=== PATIENT | male | born 1980 | race Two or more races ===

== ENCOUNTER 2020-08-17 21:45 | Emergency (ER) | payer SELFPAY ==
[2020-08-17 22:05] LABS: ABSOLUTE BASOPHILS # (AUTO) 0.1 10^3/uL (0.0-0.2); ABSOLUTE LYMPHOCYTES (AUTO) 1.3 10^3/uL (0.5-4.7); ABSOLUTE MONOCYTES (AUTO) 1.2 10^3/uL (0.1-1.4); ABSOLUTE NEUT (AUTO) 17.1 10^3/uL (1.7-8.2); BASOPHILS % (AUTO) 0.4 % (0-2); HEMATOCRIT 45.3 % (37.9-51.0); HEMOGLOBIN 15.7 g/dL (13.5-17.0); LYMPHOCYTES % (AUTO) 6.5 % (13-45); MEAN CORPUSCULAR HEMOGLOBIN 31.9 pg (27.0-33.4); MEAN CORPUSCULAR HGB CONC 34.7 g/dL (32.0-36.0); MEAN CORPUSCULAR VOLUME 92 fl (80-97); MONOCYTES % (AUTO) 6.3 % (3-13); PLATELET COUNT 261 10^3/uL (150-450); RED BLOOD COUNT 4.93 10^6/uL (4.35-5.55); RED CELL DISTRIBUTION WIDTH 14.2 % (11.5-14.0); SEGMENTED NEUTROPHILS % (AUTO) 86.8 % (42-78); TOTAL CELLS COUNTED % (AUTO) 100 %; WHITE BLOOD COUNT 19.7 10^3/uL (4.0-10.5)
--- NOTE | 2020-08-17 22:11 | ER Document Report ---
ED General - General TRAVEL OUTSIDE OF THE [place] IN LAST 30 DAYS: No - HPI Associated symptoms: Other - Unknown Exacerbated by: Other - None Relieved by: Other - Unknown <BOAZ PERERA IV - Last Filed: 08/18/20 04:51> <ISAEL MONROE - Last Filed: 08/18/20 18:56> - General Chief Complaint: Psych Problem Stated Complaint: PSYCH Time Seen by Provider: 08/17/20 22:07 - HPI Context: This is a 40-year-old male with a history of bipolar disorder and schizophrenia, reportedly noncompliant with his medications, that was detained by local police after driving a stolen vehicle [place] a [place] pond. While the law enforcement officers were trying to detain the patient he became very combative and was acting in a bizarre manner. EMS was called to the scene. EMS crew had great difficulty doing initial assessment with patient safely until they finally gave the patient some ketamine and Ativan which allowed them to do a evaluation on the patient and transport him to the emergency department for further evaluation. Further history of the present illness is somewhat limited given the patient has been sedated. Presumably the patient is experiencing some type of acute psychosis and certainly seems to pose a danger to himself and others. This MD is going to take out IVC papers and do a medical screening exam on the patient. Patient is unable to articulate at this time if there are any exacerbating or alleviating factors related to his symptoms. (BOAZ PERERA IV) - Related Data Allergies/Adverse Reactions: No Known Allergies Allergy (Verified 04/14/15 15:25) Past Medical History - General Information source: Law Enforcement, Emergency Med Personnel - Social History Smoking Status: Unknown if Ever Smoked Frequency of alcohol use: Unknown Drug Abuse: None - Unknown Lives with: Other - Unknown Family History: Other - Unable to obtain family history - Past Medical History Cardiac Medical History: Reports: Hx Hypertension Psychiatric Medical History: Reports: Hx Bipolar Disorder, Hx Schizophrenia Past Surgical History: Reports: Hx Orthopedic Surgery - LFA - Immunizations Hx Diphtheria, Pertussis, Tetanus Vaccination: Yes <BOAZ PERERA IV - Last Filed: 08/18/20 04:51> Review of Systems - Review of Systems -: Yes ROS unobtainable due to patient's medical condition <BOAZ PERERA IV - Last Filed: 08/18/20 04:51> Physical Exam <TREVERBOAZ JAMES IV - Last Filed: 08/18/20 04:51> - Vital signs Vitals: Resp BP Pulse Ox 32 H 136/91 H 98 08/17/20 21:49 08/17/20 21:49 08/17/20 21:49 - Notes Notes: CONSTITUTIONAL Vital signs reviewed. Patient appears disheveled and somewhat sedated. However he does thrash and have some psychomotor agitation agitation at times. His unpredictable physically aggressive behavior is concerning in terms of the possibility of potential for harm to self or others. Violent restraints have been ordered by this MD HEAD [Atraumatic, Normocephalic.] EYES [Eyes are normal to inspection, No discharge from eyes, Extraocular muscles intact, Sclera are normal, Conjunctiva are normal.] ENT Nose examination normal, Posterior pharynx normal, Mouth normal to inspection.] NECK [Normal ROM, No jugular venous distention, No meningeal signs, no carotid bruit.] RESPIRATORY CHEST [Chest is nontender, Breath sounds normal, No respiratory distress.] CARDIOVASCULAR [Tachycardia, No murmurs, Normal S1 S2, No rub, No gallop.] ABDOMEN [Abdomen is nontender, No pulsatile masses, No other masses, Bowel sounds normal, No distension, No peritoneal signs, No hernias.] BACK [There is no CVA Tenderness, There is no tenderness to palpation, Normal inspection.] UPPER EXTREMITY [Inspection normal, No cyanosis, No clubbing, No edema, 2+ radial pulses.] LOWER EXTREMITY [Inspection normal, No cyanosis, No clubbing, No edema, No calf tenderness, 2+ femoral pulses.] NEURO [No focal motor deficits, No focal sensory deficits,] SKIN [Skin is warm, Skin is dry, Skin is normal color.] PSYCHIATRIC Patient is somnolent at times and other times he thrashes around physically and appears agitated.] (BOAZ PERERA IV) Course - Laboratory Result Diagrams: 08/17/20 21:58 08/17/20 21:55 <BOAZ PERERA IV - Last Filed: 08/18/20 04:51> - Laboratory Result Diagrams: 08/17/20 21:58 08/17/20 21:55 <ISAEL MONROE - Last Filed: 08/18/20 18:56> - Re-evaluation Re-evalutation: 08/18/20 04:51 Patient is medically cleared (BOAZ PERERA IV) - Vital Signs Vital signs: Temp Pulse Resp BP Pulse Ox 97.5 F 54 L 16 131/78 H 99 08/18/20 17:00 08/18/20 17:00 08/18/20 17:00 08/18/20 17:00 08/18/20 17:00 - Laboratory Laboratory results interpreted by me: 08/17/20 08/17/20 08/17/20 21:55 21:55 21:58 WBC 19.7 H RDW 14.2 H Lymph % (Auto) 6.5 L Absolute Neuts (auto) 17.1 H Seg Neutrophils % 86.8 H Carbon Dioxide 19 L BUN 31 H Total Bilirubin 2.2 H Direct Bilirubin 0.5 H ALT 52 H Urine Protein 30 H Urine Glucose (UA) >=500 H Urine Ketones 80 H Salicylates < 1.0 L Acetaminophen < 10 L - EKG Interpretation by Me Additional EKG results interpreted by me: 08/17/20 22:47 EKG obtained on 08/17/2020 at 2213 hrs. was interpreted by this MD. Findings sinus tachycardia with a rate of 109, normal axis, [place] interval appears to be within normal limits, P waves preceding QRS complexes, QRS complexes appear narrow, QTC is 475, there are no obvious patterns of ST segment elevation, depression, or reciprocal change present to suggest acute myocardial ischemia or infarction. No prior EKGs immediately available for comparison. Impression: Sinus tachycardia with nonspecific ST segments. (BOAZ PERERA IV) Discharge <BOAZ PERERA IV - Last Filed: 08/18/20 04:51> <ISAEL MONROE - Last Filed: 08/18/20 18:56> - Discharge Clinical Impression: Methamphetamine intoxication, Methamphetamine abuse Clinical Impression: (Ruled Out): Acute psychosis, Involuntary commitment Condition: Stable Disposition: HOME, SELF-CARE Additional Instructions: You have been evaluated both medical and behavioral health teams have been deemed appropriate for discharge. Review of medical documentation from [place] correlate with current findings of Bipolar 1 disorder and Methamphetamine abuse. You are highly encouraged to engage in appropriate services for mental health and substance abuse. You are reminded, you were not started on any psychiatric medications while in [place] other than Seroquel to assist with insomnia. You are encouraged to continue taking your prescribed medications as directed. You have been provided local resource list of area providers, including mobile crisis contact information, if you choose to stay in this area. Bipolar Disorder Bipolar disorder is also called manic-depressive disorder. Depression alternates with brain hyperactivity called kenia. Each phase lasts from several days to a few weeks. We don't know exactly what causes bipolar disorder, but it's treatable. During the "manic phase," you may feel elated and energetic. You may have racing thoughts, rapid speech, increased activity, and grandiose ideas. During this time, you may not realize how poor your judgement is. Inappropriate spending, drug abuse, excessive alcohol use, marriage problems, and irresponsible sexual behavior are common during the manic phase. During the "depressive phase," you might feel depressed, guilty, worthless, fatigued, and unable to concentrate. You might have thoughts of suicide. Good treatments are available for bipolar disorder. Hope is a classic drug for bipolar disorder, and is still often useful. If the manic phase is very mild, an antidepressant alone can be prescribed. If the manic phase is very severe, an antipsychotic medicine (such as Haldol) may be needed. The treatment must be matched to your symptoms, so it's important to work closely with your psychiatric care provider. Contact your physician, the hospital emergency center, crisis line, or your counsellor if you are losing control or having self-destructive thoughts. AMPHETAMINE / METHAMPHETAMINE ABUSE: Amphetamines are addicting stimulants. Amphetamines overstimulate the nervous system and give a false feeling of power and mastery. These drugs may be obtained as prescription pills for weight loss, narcolepsy, or attention-deficit disorder. More often they're bought as an illegal street drug, methamphetamine (crank, crystal, speed). Using amphetamines repeatedly can lead to serious medical problems including malnutrition, severe depression, and paranoia. It can take increasing amounts to feel good. Eventually, there will be a "burn out." When you go off amphetamines there is a period of depression that may last for weeks or even months. High doses of amphetamines can cause seizures, confusion, hallucinations, delusions, high blood pressure, muscle damage, heart damage, or sudden . Many times these deadly complications occur even with "normal" doses. Injection of amphetamines is risky for developing abscesses, endocarditis (heart infection), pneumonia, and AIDS. Withdrawal from amphetamines often causes anxiety, depression, and drug cravings. Some users become paranoid and psychotic. There may be cramps, nausea, and vomiting. Many treatment programs are available, but you must make the decision to quit. Medication can be prescribed to control the symptoms of amphetamine toxicity (beta blockers or benzodiazepines). Withdrawal symptoms may require tranquilizers. FOLLOW-UP CARE: If you have been referred to a physician for follow-up care, call the [facility] office for an appointment as you were instructed or within the next two days. If you experience worsening or a significant change in your symptoms, notify the physician immediately or return to the Emergency Department at any time for re-evaluation. Referrals: [facility] [Outside] - Follow up as needed
[2020-08-17 22:22] LABS: ACETAMINOPHEN < 10 ug/mL (10-30); ALBUMIN 4.9 g/dL (3.5-5.0); ALCOHOL < 10 mg/dL (NONE DETECTED); ALKALINE PHOSPHATASE 79 U/L (38-126); ANION GAP 18 (5-19); ASPARTATE AMINO TRANSFERASE 46 U/L (17-59); BILIRUBIN,DIRECT 0.5 mg/dL (0.0-0.4); BILIRUBIN,TOTAL 2.2 mg/dL (0.2-1.3); BLOOD UREA NITROGEN 31 mg/dL (7-20); CALCIUM 9.5 mg/dL (8.4-10.2); CARBON DIOXIDE 19 mmol/L (22-30); CHLORIDE 105 mmol/L (98-107); GLUCOSE 93 mg/dL (75-110); POTASSIUM 3.9 mmol/L (3.6-5.0); SALICYLATE < 1.0 mg/dL (2.0-20.0); TOTAL PROTEIN 8.2 g/dL (6.3-8.2)
[2020-08-17 22:24] LABS: APPEARANCE,URINE CLEAR; BILIRUBIN,URINE NEGATIVE (NEGATIVE); COLOR,URINE YELLOW; GLUCOSE, URINE >=500 mg/dL (NEGATIVE); KETONES,URINE 80 mg/dL (NEGATIVE); LEUKOCYTE ESTERASE,URINE NEGATIVE (NEGATIVE); NITRITE,URINE NEGATIVE (NEGATIVE); PROTEIN,URINE 30 mg/dL (NEGATIVE); URINE SPECIFIC GRAVITY 1.023; UROBILINOGEN,URINE NEGATIVE mg/dL (<2.0)
[2020-08-17 22:36] LABS: URINE BARBITURATES SCREEN NEGATIVE; URINE BENZODIAZEPINES SCREEN NEGATIVE; URINE COCAINE SCREEN NEGATIVE; URINE MARIJUANA (THC) SCREEN NEGATIVE; URINE METHADONE SCREEN NEGATIVE; URINE PHENCYCLIDINE SCREEN NEGATIVE
[2020-08-18] MEDS ORDERED: CHLORPROMAZINE HCL INJ 25 MG/1 ML AMPULE IM ONE (11:28)
--- NOTE | 2020-08-18 11:28 | ER Document Report ---
Doctor's Note Notes: 08/18/20 11:27 Patient was seen and evaluated by [facility] medication recommendations were given to provider. Medications were ordered will reevaluate after medications have had time to take effect. 08/18/20 14:40 Patient is sleeping difficult to arouse but responds to painful stimuli's. Refusing to answer any questions at this time. 08/18/20 18:43 Patient was arousable to his name being spoken and then immediately closed his eyes and would not speak to the provider. When provider asked the patient to open his eyes and speak to me patient was able to follow directions appropriately. Oriented to his name. States he does not remember what happened or why he is here. He is able to follow directions appropriately. Reviewed findings with [facility], patient will be discharged into the custody of the police. Patient was in the act of being arrested by the police when he apparently flopped to the ground and presented with a psychotic episode. At this time patient is alert and able to follow directions without difficulty. Answers questions appropriately. He is aware that he is being discharged into the custody of the police. He is ambulatory with a steady gait. He is in no acute distress at this time. 08/18/20 20:13 Discharge - Discharge Clinical Impression: Methamphetamine intoxication, Methamphetamine abuse Condition: Stable Disposition: HOME, SELF-CARE Additional Instructions: You have been evaluated both medical and behavioral health teams have been deemed appropriate for discharge. Review of medical documentation from [place] correlate with current findings of Bipolar 1 disorder and Methamphetamine abuse. You are highly encouraged to engage in appropriate services for mental health and substance abuse. You are reminded, you were not started on any psychiatric medications while in [place] other than Seroquel to assist with insomnia. You are encouraged to continue taking your prescribed medications as directed. You have been provided local resource list of area providers, including mobile crisis contact information, if you choose to stay in this area. Bipolar Disorder Bipolar disorder is also called manic-depressive disorder. Depression alternates with brain hyperactivity called kenia. Each phase lasts from several days to a few weeks. We don't know exactly what causes bipolar disorder, but it's treatable. During the "manic phase," you may feel elated and energetic. You may have racing thoughts, rapid speech, increased activity, and grandiose ideas. During this time, you may not realize how poor your judgement is. Inappropriate spending, drug abuse, excessive alcohol use, marriage problems, and irresponsible sexual behavior are common during the manic phase. During the "depressive phase," you might feel depressed, guilty, worthless, fatigued, and unable to concentrate. You might have thoughts of suicide. Good treatments are available for bipolar disorder. Finzel is a classic drug for bipolar disorder, and is still often useful. If the manic phase is very mild, an antidepressant alone can be prescribed. If the manic phase is very severe, an antipsychotic medicine (such as Haldol) may be needed. The treatment must be matched to your symptoms, so it's important to work closely with your psychiatric care provider. Contact your physician, the hospital emergency center, crisis line, or your counsellor if you are losing control or having self-destructive thoughts. AMPHETAMINE / METHAMPHETAMINE ABUSE: Amphetamines are addicting stimulants. Amphetamines overstimulate the nervous system and give a false feeling of power and mastery. These drugs may be obtained as prescription pills for weight loss, narcolepsy, or attention-deficit disorder. More often they're bought as an illegal street drug, methamphetamine (crank, crystal, speed). Using amphetamines repeatedly can lead to serious medical problems including malnutrition, severe depression, and paranoia. It can take increasing amounts to feel good. Eventually, there will be a "burn out." When you go off amphetamines there is a period of depression that may last for weeks or even months. High doses of amphetamines can cause seizures, confusion, hallucinations, delusions, high blood pressure, muscle damage, heart damage, or sudden . Many times these deadly complications occur even with "normal" doses. Injection of amphetamines is risky for developing abscesses, endocarditis (heart infection), pneumonia, and AIDS. Withdrawal from amphetamines often causes anxiety, depression, and drug cravings. Some users become paranoid and psychotic. There may be cramps, nausea, and vomiting. Many treatment programs are available, but you must make the decision to quit. Medication can be prescribed to control the symptoms of amphetamine toxicity (beta blockers or benzodiazepines). Withdrawal symptoms may require tranquilizers. FOLLOW-UP CARE: If you have been referred to a physician for follow-up care, call the physicians office for an appointment as you were instructed or within the next two days. If you experience worsening or a significant change in your symptoms, notify the physician immediately or return to the Emergency Department at any time for re-evaluation. Referrals: [facility] [Outside] - Follow up as needed
[2020-08-18] MEDS ORDERED: BENZTROPINE MESYLATE INJ 2 MG/2 ML AMPULE IM ONE (11:29)
--- NOTE | 2020-08-18 12:06 | PSYCHOLOGICAL NOTE ---
Psych Note - Psych Note Date seen by psych provider: 08/18/20 Time seen by psych provider: 10:00 Psych Note: Reason for Consult: Psychosis Patient presented to [facility] via EMS after having a "psychotic episode" while being booked at the [facility]. EMS reported that the patient was being booked fell to the ground and started demonstrating odd behaviors such as being in a psychosis. Patient reportedly discloses being schizophrenic and not on medication for approximately 4 days. Clinician entered patient's room and noted immediately patient was attempting to demonstrate behaviors of psychosis. Patient's eyes were wildly looking about the room as if seeing things. Patient confirms that he is seeing things and they are" black and white." Once confronted with the fact that the patient's behaviors not congruent with known manifestations of hallucinations and psychosis, the patient spoke with clinician in regards to his mental health. Patient reports that he was being seen at [facility] in [place] where he received both therapy and medic ation for "bipolar and schizophrenia." He reports that he was sent inpatient due to his therapist feeling he was on too many medications and was there approximately a week prior to coming to [place]. Patient states his medications should be in his bag which he identifies as including anxiety medication. Patient reports that he has been inpatient psychiatric treatment multiple times. When asked why he is told via cold patient immediately and clearly indicated that he did not steal the vehicle, his girlfriend gave him verbal consent to the day before and gave him the keys. Patient reports that he has a fiance in [place] and his girlfriend here. He reports his girlfriend bought him a plane ticket to come to [place] to see her. Patient does have a plane ticket stub in his belongings. Patient also has [facility] discharge paperwork for a 1 day admission on 08/07 to 08/08/2020. Patient is noted to have a diagnosis of bipolar 1 disorder and meth abuse. Patient is not on any psychiatric medications for psychosis. Patient discharge paperwork lists 9 different medications 8 of which are for medical such as cholesterol, hypertension, GERD and diabetes. There is one medication of Seroquel 800 mg nightly specifically for insomnia per discharge paperwork. Toxicology screening indicates probable amphetamine/methamphetamine Medication recommendations per [facility]'s contracted psyciatrist are as follows Thorazine 50mg IM once Cogentin 1mg IM once Impression\\plan: Patient is recommended for rescind of 24-hour petition for evaluation; work is signed and placed in patient's chart. Patient was demonstrating methamphetamine intoxication upon original arrival. There is significant concern of the patient is attempting to use mental health services to avoid incarceration. Patient attempted to demonstrate behaviors of psychosis however when it was clearly indicated that the patient was not congruent with known manifestations he was able to provide organized linear and logical conversation in details. Patient reports schizophrenic diagnosis, there is no evidence the patient has any schizoaffective or schizophrenic diagnosis. Discharge paperwork from [facility] supports the behavioral health team's findings of probable bipolar disorder with methamphetamine abuse. Patient is not demonstrating any behaviors of kenia. Patient is encouraged to engage in appropriate services for his mental health and substance abuse treatment. Patient will be provided a local resource list of area providers including mobile crisis contact information if patient decides to stay in the local vicinity. At this time the patient is being discharged into the care of local law enforcement due to arrest and subsequent behaviours that brought him to [facility] ED and outstanding warrants. Dr. Ross was consulted to care management of this patient; tending physicians in agreement with recommendations and disposition.
--- NOTE | 2020-08-18 16:30 | EKG REPORT ---
SEVERITY:- OTHERWISE NORMAL ECG - SINUS TACHYCARDIA : Confirmed by: Maureen Campbell 18-Aug-2020 16:29:21
[2020-08-18 19:34] VITALS: BP 122/74
== END 2020-08-18 19:43 | disposition home or self-care (01) ==
LOC: ER 21:45
DX: F15.129 Other stimulant abuse with intoxication, unspecified (principal); Z78.1 Physical restraint status; I10 Essential (primary) hypertension
CPT/HCPCS: 93005; 99285; 96372; 36415; 82962; 80307 ×4; 85025; 80053; 81001; 93010; J0515; J3230